=== PATIENT | male | born 1995 | race Caucasian/White ===

== ENCOUNTER 2024-11-22 12:16 | Outpatient (REF) | payer OTHER, SELFPAY ==
--- OUTSIDE RECORDS SUMMARY | 2023-11-03 07:00 | XMS_ITS ---
Author Organization Alistair Taylor III, MD Address [address] [place] [address] Care Team Providers Care Evaporator Helper Name Role Phone Alistair Taylor Primary Care Provider Allergies Allergen (clinical drug ingredient) Drug/Non Drug [...] Date Provider Diagnosis Alistair Taylor III, MD [address] [place] [address] [address] [place] [address] 11/03/2023 Alistair Taylor Obesity (BMI 30-39.9) E66.9 [...] Year, Reason: A nnual Exam Provider Name:Alistair Taylor, 11/06/2025 11:00:00 AM, [address] [place] [address] [address], [place], [address], Progress Notes * Bryon HUNTERDOB:1995 (28 yo M)Acc No.[id number]:11/03/2023 Progress Notes Patient: Bryon Milner Provider: Gurwinder Taylor MD :1995 A ge:28 Y S ex:Male Date:11/03/2023 Address: [address], [address] Subjective: * Chief Complaints: * A nnual [...] N egative H sivakumar was born in [facility]. He came to this country at the age of 3 and his [place] since. He is working for the [employer] in [place]. He has no toxic exposures. He works [...] 0 11/03/2023 Generated for Aisha melissa/Hermilo/Shreyassmitting on: 0 11/22/2024 01:10 PM EDT History and Physical Notes * HPI (History [...] Have you been exposed to the virus withi n the last 10 days?: No Have [...]
--- OUTSIDE RECORDS SUMMARY | 2024-11-04 07:00 | XMS_ITS ---
Author Organization Alistair Taylor III, MD Address [address] [place] [address] Care Team Providers Care Exhibitor Sales Name Role Phone Alistair Taylor Primary Care [...] M edicine Referred Provider [facility], of [facility], [facility] Referred Provider Specialty Otolaryngolo gy General Notes Shanique Jain [facility] 11/10 09:48:17 AM >form/ref/progress note faxed to ENT of [facility], Shanique Jain [facility] 11/17/2024 03:29:45 PM >called ENT made patient appt with Dr Jose Luis Funez 100 [facility] [address] [place] [address] info called and mailed to patient Referral [...] Problem Status W/U Status Risk Notes Problem [id number] Deviated nasal septum (J34.2) Active confirmed He [...] Date Provider Diagnosis Alistair Taylor III, MD [address] [place] [address] [place] [address] 11/04/2024 Alistair Taylor Obesity (BMI 30-39.9) E66.9 [...] septum evaluate and treatment excessive snoring, of [facility], [facility] Next Appt Details Follow Up: after testing, Re ason: ov review labs/sleep study Provider Name:Alistair Coxne, 11/06/2025 11:00:00 AM, [address] [place] [address] , [address], [address], Progress Notes * Ian HUNTERitzelDOB:1995 (29 yo M)Acc No.[id number]:11/04/2024 Progress Notes Patient: Bryon FERRELL Provider: Gurwinder Taylor MD :1995 A ge:29 Y S ex:Male Date:11/04/2024 Address: [address], [address] Subjective: * Chief Complaints: * A nnual [...] days P oor appetite or overeating S everal F eeling bad about yourself or that [...] N egative H sivakumar was born in [place], [facility]. He came to this country at the age of 3 and his [place] since. He is working for the [employer] in [place]. He has no toxic exposures. He works [...] maging: Sleep Study - Diagnostic Referral To:of [facility] Otol[facility] Reason:deviated septum evaluate and treatment excessive snoring 3. O thers Start Albuterol Sulfate HFA Aerosol Solution, 108 (90 Base) MCG/ACT, 1 puff as needed, Inhalation, every 6 hrs, 30 days, 1 Inhaler, Refills 11. ? Referral To:of [facility] Otol[facility] Reason:deviated septum evaluate and treatment [...] MD Date: 0 11/04/2024 Generated for Aisha melissa/Faxing/eTransmitting on: 0 11/22/2024 01:09 PM EDT History and Physical Notes * [...] Not es 11/04/2024 Alistair Taylor Sur[facility], of [facility], [facility] deviated septum evaluate and treatment excessive snoring
--- OUTSIDE RECORDS SUMMARY | 2024-11-08 10:33 | XMS_ITS ---
Author Organization Alistair Taylor III, MD Address [address] [place] [address] [place] [address] Care Team Providers Care Engineer Design And Construction Name Role Phone Alistair Taylor Primary Care Provider [phone] REASON FOR VISIT new order for Home sleep study Social History Sex Assigned At : Social History Observation Description Sex Assigned At Male Encounters Encounter Location Date Provider Diagnosis Alistair Taylor III, MD [address] [place] [address] [place] [address] 11/08/2024 Alistair Taylor Obesity (BMI 30-39.9 ) [...] Baseline 11/08/2024 Next Appt Details Provider Name:Alistair Taylor, 11/06/2025 11:00:00 AM, [address] [place] [address] [place], [address], Progress Notes * Bryon HUNTERDOB:1995 (29 yo M)Acc No.[id number]:11/08/2024 Patient: Susy Bryon HODGES :1995 A ge:29 Y S ex:Male Address: [address], [address], [place], [address] Subjective: * Chief Complaints: * n ew [...] * Date: Generated for Aisha melissa/Hermilo/Cory on: 0 11/22/2024 01:10 PM EDT
[2024-11-22 12:45] LABS: MANUAL DIFF FLAG NO
--- OUTSIDE RECORDS SUMMARY | 2024-11-22 13:10 | XMS_ITS | Encounter Summary ---
Author Organization [facility] Address [address] [place] [address] Phone Care Team Providers Care Milk Vendor Name Role Phone Sudhakar Agosto MD Primary Care Provider Unavailabl e Encounter Details Date Type Department Care Team (Late st Contact Info) Description 10/02/2014 Documentation [facility] Family Medicine [address] [place] [address] Family Medicine, Physician [address] [place], [place] [address] Social History Tobacco Use Types Packs/Day Years Used Date Smoking Tobacco: Never Comments:Never smoker Sex and Gender Information Value Date Recorded Sex Assigned at Not on file Legal Sex Male 4:55 PM EDT Gender Identity Not on file Sexual Orientation Not on file documented as of this encounter Plan of Treatment Not on file documented as of this encounter Visit Diagnoses Not on filedocumented in this encounter Care Teams Milk Vendor Relationship Specialty Start Date End Date Sudhakar Agosto MD PCP - General 11/07/16 documented as of this encounter
--- OUTSIDE RECORDS SUMMARY | 2024-11-22 13:10 | XMS_ITS | Encounter Summary ---
Author Organization [facility] Address [address] [place] [address] Phone Care Team Providers Care Wool Sacker Name Role Phone Sudhakar Agosto MD Primary Care Provider Unavailabl e Encounter Details Date Type Department Care Team (Late st Contact Info) Description 06/02/2014 Documentation [facility] Family Medicine [address] [place] [address] Family Medicine, Physician [address] [place], [place] [address] Social History Tobacco Use Types Packs/Day Years [...] on filedocumented in this encounter Care Teams Wool Sacker Relationship Specialty Start Date End Date Sudhakar Agosto MD PCP - General 11/07/16 documented as of this encounter
--- OUTSIDE RECORDS SUMMARY | 2024-11-22 13:10 | XMS_ITS ---
Author Name [facility] Organization Unknown Care Team Organization Name Specialty Phone Email Start Date End Da te [facility] Em Carty [facility] 08/04/20222023 [facility] Sameer Aguayo DO Primary Care 06/04/202210/28 [facility] NULL Primary Care 02/04/2022 11/16/2023
--- OUTSIDE RECORDS SUMMARY | 2024-11-22 13:10 | XMS_ITS | Clinical Summary ---
Author Organization [facility] Address [address] [id number] Care Team Providers Care Outreach Analyst Name Role Phone Unavailable Primary Care Provider Unavailabl e Allergies No known active allergies Medications No known medications Social History Tobacco Use Types Packs/Day Years Used Date Smoking Tobacco: Never Assessed Sex and Gender Information Value Date Recorded Sex Assigned at Male 02/16/2021 10:38 AM EST Gender Identity Not on file Sexual Orientation Not on file Job Start Date Occupation Industry Not on file Not on file Not on file Last Filed Vital Signs Vital Sign Reading Time Taken Comments Blood Pressure 118/78 02/26/2021 8:57 AM EST Pulse - - Temperature - - Respiratory Rate - - Oxygen Saturation - - Inhaled Oxygen Concentration - - Weight 100 kg (220 lb 7.4 oz) 02/26/2021 8:57 AM EST Height 177.8 cm (5' 10 ) 02/26/2021 8:57 AM EST Body Mass Index 31.63 02/26/2021 8:57 AM EST Plan of Treatment Health Maintenance Due Date Last Done Comments Hepatitis B Vaccines (1 of 3 - 3-dose series) 1996 Hepatitis C Screening 1996 COVID-19 Vaccine (#1) 04/18/1997 Depression Screening 2008 Preventative Health Evaluation 2014 DTap / Tdap / Td (1 - Tdap) 10/17/2015 Influenza Vaccine (#1) 2024 Pneumococcal Vaccine Aged Out No long er eligible based on patient's age to complete this topic RSV Ped < 20 months Aged Out No longe r eligible based on patient's age to complete this topic
--- OUTSIDE RECORDS SUMMARY | 2024-11-22 13:10 | XMS_ITS | Clinical Summary ---
Author Organization [facility] Address [address] [place] [address] Phone Care Team Providers Care Shipping Order Clerk Name Role Phone Sudhakar Agosto MD Primary Care Provider Unavailabl e Immunizations Immunization Administration Dates Next Due DTaP 5 12/03/2001, 2,01/15/2001,09/25 H1N1 02/20/2009 HPV Vaccine 9 Valent 08/23/2015 HPV, Quadrivalent 09/05/2014,05/11/2014 Hep A, ped/adol 10/20/2008,08/19/2006 Hep B, ped/adol 04/28/2001,11/13/2000,09/25/2000 Hib (PRP-T) 06/08/2001 IPV 12/03/2001, 2,01/15/2001,09/25 Influenza Split 12/18/2011,12/12/2010 Influenza, injectable, quadrivalent 05/11/2014 Influenza, injectable, quadr ivalent, preservative free 04/28/2013 Influenza, injectable, trivalent 03/28/2009 MMR 06/08/2001,09/25/2000 Meningococcal Conj (Menactra) MCV4P 09/05/2014,0 10/20/2008 Tdap 10/20/2008 Varicella 10/20/2008,06/08/2001 Family History Relation Name Status Comments Father Alive Father: Alive a nd well Mother Alive Mother: Alive a nd well Other No family histo ry of Sudden , , Family history of Autism, No family history of Stroke, No family history of Heart disease, , Family history of Elevated cholesterol, Family history of Deafness Sister Alive Sister: Alive a nd well Social History Tobacco Use Types Packs/Day Years Used Date Smoking Tobacco: Never Comments:Never smoker Sex and Gender Information Value Date Recorded Sex Assigned at Not on file Legal Sex Male 4:55 PM EDT Gender Identity Not on file Sexual Orientation Not on file Last Filed Vital Signs Vital Sign Reading Time Taken Comments Blood Pressure 116/78 08/23/2015 12:00 AM EDT Pulse 72 08/23/2015 12:00 AM EDT Temperature 36.1 C (96.9 F) 12/23/2012 12:00 AM EDT Respiratory Rate - - Oxygen Saturation - - Inhaled Oxygen Concentration - - Weight 87.4 kg (192 lb 9.6 oz) 08/23/2015 12:00 AM EDT Height 175.3 cm (5' 9 ) 08/23/2015 12:00 AM EDT Body Mass Index 28.44 08/23/2015 12:00 AM EDT Plan of Treatment Health Maintenance Due Date Last Done Comments DTaP,Tdap,and Td Vaccines (6 - Td or Tdap) 10/20/2018 10/20/2008, 12/03/2001, 04/28/2001, Additional history exists COVID-19 Vaccine ( season) 2023 Influenza Vaccines (#1) 2024 05/11/19 15, 04/28/2013, 12/18/2011, Additional history exists Hepatitis B Vaccines Completed 04/28/2001, 11/13/2000, 09/25/2000 HIB Vaccines Completed 06/08/2001 MMR Vaccines Completed 06/08/2001, 09/25/2000 IPV Vaccines Completed 12/03/2001, 04/01, 01/15/2001, Additional history exists Hepatitis A Vaccines Completed 10/20/2008, 08/20/19 07 Varicella Vaccines Completed 10/20/2008, 06/08/2001 Meningococcal Vaccine Completed 09/05/2014, 009 HPV Vaccines Completed 08/23/2015, 0611/2014, 05/11/2014 Men B Vaccine Aged Out No longer elig ible based on patient's age to complete this topic Pneumococcal Vaccine Aged Out No long er eligible based on patient's age to complete this topic Care Teams Shipping Order Clerk Relationship Specialty Start Date End Date Sudhakar Agosto MD PCP - General 11/07/16
--- OUTSIDE RECORDS SUMMARY | 2024-11-22 13:10 | XMS_ITS | Encounter Summary ---
Author Organization [facility] Address [address] [place] [address] Phone Care Team Providers Care Setup Operator Name Role Phone Sudhakar Agosto MD Primary Care Provider Unavailabl e Encounter Details Date Type Department Care Team (Late st Contact Info) Description 11/13/2016 Conversion Encounter [facility] - [address] [address] Social History Tobacco Use Types Packs/Day Years [...] on filedocumented in this encounter Care Teams Setup Operator Relationship Specialty Start Date End Date Sudhakar Agosto MD PCP - General 11/07/16 documented as of this encounter
--- OUTSIDE RECORDS SUMMARY | 2024-11-22 13:10 | XMS_ITS | Patient Health Record ---
Author Organization Alistair Taylor III, MD Address [address] [place] [address] Care Team Providers Care Route Deliverer Name Role Phone Alistair Taylor Primary Care [...] M edicine Referred Provider [facility], of [facility], [facility] Referred Provider Specialty Otolaryngolo gy General Notes Shanique Jain [facility] 11/10 09:48:17 AM >form/ref/progress note faxed to [facility], Shanique Jain [facility] 11/17/2024 03:29:45 PM >called ENT made patient appt with Dr Jose Luis Funez 100 [facility] [address] [place] [address] info called and mailed to patient Referral Priority Routine Referral Appointment Date 01/31/2025 Medications Medication SIG (Take, Route, Frequency, Duration) Notes Start Date End Date Status Albuterol Sulfate HFA 108 (90 Base) MCG/ACT 1 puff as needed Inhalation every 6 hrs for 30 days 11/04/2024 Active Immunizations Vaccine Route Administration Date Status Comme nts COVID PFIZER Unknown 05/17/2020 Administered Menactra (MCV4) Unknown 09/05/2014 Administered COVID PFIZER Unknown 06/06/2020 Administered Social History Tobacco Use: Social History Observation [...] Problem Status W/U Status Risk Notes Problem 771114770 Deviated nasal septum (J34.2) Active confirmed He will have a consultation with ENT after the sleep study. Problem 152409328 Obesity (BMI 30-39.9) (E66.9) Active confirmed His body mass index is 37. We had a long discussion about health consequences of obesity. We discussed diet and nutrition. We made a plan to lose weight at a rate of 1 poundd per week. He was referred to a dietitian for a low cholesterol weight reduction diet. Problem 32451660 Fasciitis (M72.9) Active confirmed This has resolved and is no longer present. Problem 715191944 Right anterior knee pain (M25.561) Active confirmed He has occasional pain in his knee which has improved substantially from his prior visit. I recommended he rest when it begins to hurt and not overuse the joint. Problem 317429141009 Excessive daytime sleepiness (G47.19) Active confirmed Vital Signs Heart Rate 69 /min 11/04/2024 Temperature 98.1 degrees Fahrenheit 11/04/2024 Blood pressure diastolic 96 mm Hg 11/04/2024 Height 67 in 11/04/2024 Blood pressure systolic 133 mm Hg 11/04/2024 Weight 246 lbs 11/04/2024 BMI 38.52 kg/m2 11/04/2024 Encounters Encounter Location Date Provider Diagnosis Alistair Taylor III, MD [address] [place] [address] [address] [id number] 11/04/2024 Alistair Coxne Obesity (BMI 30-39.9 ) E66.9 ; Loud snoring R06.83 ; Right anterior knee pain M25.561 and Deviated nasal septum J34.2 Alistair Taylor III, MD [address] [place] [address] [address] [address] 11/08/2024 Alistair Tayolr Obesity (BMI 30-39.9 ) E66.9 ; Excessive [...] referred for a sleep study sleep apnea. 11/08/2024 Obesity (BMI 30-39.9) (ICD-10 - E66.9) 11/04/2024 Right anterior knee pain (ICD-10 - M25.561) He has occasional pain in his knee which has improved substantially from his prior visit. I recommended he rest when it begins to hurt and not overuse the joint. 11/08/2024 Excessive daytime sleepiness (ICD-10 - G47.19) 11/04/2024 Deviated nasal septum (ICD-10 - J34.2) He will have a consultation with ENT after the sleep study. 11/08/2024 Loud snoring (ICD-10 - R06.83) Plan Of Treatment Pending Test Test Name Order Date PROFILE, FASTING (COMPREHENSIVE METABOLI C) 11/04/2024 PROFILE, FASTING (COMPREHENSIVE METABOLI C) 05/10/2019 PROFILE, FASTING (COMPREHENSIVE METABOLI C) 11/03/2023 PROFILE, FASTING (COMPREHENSIVE METABOLI C) 10/28/2022 LIPID PANEL 10/28/2022 LIPID PANEL 05/10/2019 CBC w DIFF 11/04/2024 CBC w DIFF 10/28/2022 CBC w DIFF 05/10/2019 Sleep Study - Baseline 11/08/2024 Sleep Study - Diagnostic 11/04/2024 CBC WITH AUTO DIFF 11/03/2023 Lipid Panel 11/04/2024 Lipid Panel 11/03/2023 Testosterone, Total 11/04/2024 Next Appt Details Provider Name:Alistair Taylor, 11/06/2025 11:00:00 AM, [address] [place] [address] DR, [facility] [address], [place], [address], Insurance Providers Payer Name Payer Address Payer Phone Subscriber Number Group Number Insured Name Patient Relationship to Insured Coverage Start Date Coverage End Date BAUDILIO COREAS [id number] [place] [id number] Bryon Hunter Self - patient is the insured Medical (General) History Medical History History ICD Code Overweight E66.3 Surgical History Surgery Date(Month/Year) Lasik bilateral 2022 dental extractions age 17
--- OUTSIDE RECORDS SUMMARY | 2024-11-22 13:10 | XMS_ITS | Clinical Summary ---
Author Organization [facility] Address [address] [place] [address] Care Team Providers Care Auto Headlight Mechanic Name Role Phone Unavailable Primary Care Provider Unavailabl e Social History Tobacco Use Types Packs/Day Years Used Date Smoking Tobacco: Never Assessed Sex and Gender Information Value Date Recorded Sex Assigned at Not on file Legal Sex Male 6:19 AM EST Gender Identity Not on file Sexual Orientation Not on file Plan of Treatment Health Maintenance Due Date Last Done Comments DTaP,Tdap,and Td Vaccines (1 - Tdap) 10/17/2015 Hepatitis B Vaccines (1 of 3 - 19+ 3-dose series) 10/17/2015 COVID-19 Vaccine ( - 2023-2 5 season) 2023 Depression Screening 03/30/2024 Influenza Vaccine (#1) 2024 HIB Vaccines Aged Out No longer eligi ble based on patient's age to complete this topic HPV Vaccines Aged Out No longer eligi ble based on patient's age to complete this topic Hepatitis A Vaccines Aged Out No long er eligible based on patient's age to complete this topic IPV Vaccines Aged Out No longer eligi ble based on patient's age to complete this topic MMR Vaccines Aged Out No longer eligi ble based on patient's age to complete this topic Meningococcal ACWY Vaccine Aged Out N o longer eligible based on patient's age to complete this topic Meningococcal B Vaccine Aged Out No l onger eligible based on patient's age to complete this topic Pneumococcal Vaccine: Pediat rics (0 to 5 Years) and At-Risk Patients (6 to 49 Years) Aged Out No longer eligible b ased on patient's age to complete this topic RSV Immunization Patients Un libra 20 months Aged Out No longer eligible b ased on patient's age to complete this topic Varicella Vaccines Aged Out No longer eligible based on patient's age to complete this topic
--- OUTSIDE RECORDS SUMMARY | 2024-11-22 13:10 | XMS_ITS | Encounter Summary ---
Author Organization [facility] Address [address] [place] [address] Phone Care Team Providers Care Brake Operator Heavy Duty Name Role Phone Sudhakar Agosto MD Primary Care Provider Unavailabl e Encounter Details Date Type Department Care Team (Late st Contact Info) Description 11/21/[address] [facility] [place] Family Medicine [address] [place] [address] Family Medicine, Physician [address] [place], [place] [address] Social History Tobacco Use Types Packs/Day Years [...] on filedocumented in this encounter Care Teams Brake Operator Heavy Duty Relationship Specialty Start Date End Date Sudhakar Agosto MD PCP - General 11/07/16 documented as of this encounter
--- OUTSIDE RECORDS SUMMARY | 2024-11-22 13:10 | XMS_ITS | Encounter Summary ---
Author Organization [facility] Address [address] [place] [address] Phone Care Team Providers Care Social Service Liaison Name Role Phone Sudhakar Agosto MD Primary Care Provider Unavailabl e Encounter Details Date Type Department Care Team (Late st Contact Info) Description 12/29/2011 Documentation [facility] [place] Family Medicine [address] [place] [address] Family Medicine, Physician [address], [place] [address] Social History Tobacco Use Types Packs/Day Years [...] on filedocumented in this encounter Care Teams Social Service Liaison Relationship Specialty Start Date End Date Sudhakar Agosto MD PCP - General 11/07/16 documented as of this encounter
[2024-11-22 14:31] LABS: Hematocrit 47.5 % (42.0-52.0); Hemoglobin 15.7 g/dl (14.0-18.0); Imm Gran Abs Auto 0.02 X10*3/uL (0.00-0.03); Imm Gran Pct Auto 0.2 % (0.0-0.4); Lymphocytes Absolute Auto 2.0 X10*3/uL (1.2-4.9); Mean Corpuscular HGB Conc 33.1 g/dl (31.0-36.0); Mean Corpuscular Hemoglobin 28.5 pg (27.0-33.0); Mean Corpuscular Volume 86.4 fL (80.0-98.0); NRBC Abs Auto 0.000 X10*3/uL (0.0-0.012); NRBC Pct Auto 0.0 /100WBC (0.0-0.2); Platelet Count 289 X10*3/uL (160-400); Red Blood Count 5.50 X10*6/uL (4.60-5.80); White Blood Count 8.1 X10*3/uL (4.8-10.8)
[2024-11-22 15:05] LABS: Alanine Aminotransferase 52 U/L (0-40); Albumin Level 4.8 g/dL (3.5-5.0); Alkaline Phosphatase 54 U/L (39-117); Anion Gap 14 (12-20); Aspartate Amino Transferase 30 U/L (5-37); Blood Urea Nitrogen 13 mg/dL (9-16); Calcium 9.5 mg/dL (8.4-10.2); Carbon Dioxide 25 mmol/L (22-29); Chloride 105 mmol/L (96-108); Cholesterol 183 mg/dL (<200); Estimated Glomerular Filt Rate > 60; HDL Cholesterol 45 mg/dL (>40); Potassium 4.1 mmol/L (3.3-5.1); Sodium 140 mmol/L (135-145); Total Protein 7.9 g/dL (6.5-8.0); Triglycerides 102 mg/dL (<150)
== END 2024-11-22 12:17 | disposition home or self-care (01) ==
LOC: HO.LAB 12:16
PROVIDERS: PCP Internal Medicine Medical Oncology; Visit Provider Internal Medicine Medical Oncology
DX: G47.19 Other hypersomnia (principal); E66.9 Obesity, unspecified; R06.83 Snoring
CPT/HCPCS: 36415; 80053; 80061; 84403; 85025

== ENCOUNTER → 2025-02-07 07:51 | Outpatient (REF) | payer OTHER, SELFPAY ==
--- OUTSIDE RECORDS SUMMARY | 2023-11-03 06:00 | XMS_ITS ---
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 Alistair Taylor III Primary Care Provider [phone] Allergies Allergen (clinical drug ingredient) Drug/Non Drug Allergy documented on EMR Reaction Allergy Type Onset Date Status Fruits (uncoded) Unknown Allergy Act nader Results Component Value Reference Range Notes URINE DIP STICK Reviewed date:11/03/2023 01:47:12 PM Interpretation: Performing Lab: Notes/Report: SG 1.025 1.005 - 1.025 pH 15 5.0 - 9.0 GILDARDO Negative Negative - NIT Negative Negative - PRO 15 Negative - Trace GLU Negative Negative - KET Negative Negative - UBG 0.2 0.1 - 1.8 GENESIS Negative 0.2 - 1.3 BLD Negative Negative - REASON FOR VISIT annual exam Social History Tobacco Use: Social History Observation Description Date Details (start date - stop date) Never Smoker NA - NA Sex Assigned At : Social History Observation Description Sex Assigned At Male Tobacco Use/Smoking Question Answer Notes Patient is a nonsmoker Additional Findings: Tobacco Non-User Aggressive non-smoker Alcohol Screen Question Answer Notes Did you have a drink contain ing alcohol in the past year? Yes How often did you have a dri nk containing alcohol in the past year? 2 to 4 times a month (2 points) How many drinks did you have on a typical day when you were drinking in the past year? 1 or 2 drinks (0 point) How often did you have 6 or more drinks on one occasion in the past year? Never (0 point) Points 2 Interpretation Negative Vital Signs Temperature 97.5 degrees Fahrenheit 11/03/19 24 Blood pressure systolic 130 mm Hg 11/03/19 24 Blood pressure diastolic 78 mm Hg 024 Heart Rate 61 /min 11/03/2023 Height 67 in 11/03/2023 Weight 248 lbs 11/03/2023 BMI 38.84 kg/m2 11/03/2023 Encounters Encounter Location Date Provider Diagnosis Alistair Taylor III, MD [address] [place] [address] [address] [place] [address] 11/03/2023 Alistair Taylor Obesity (BMI 30-39.9) E66.9 and Right anterior knee pain M25.561 Assessments Encounter Date Diagnosis (ICD Code) Assessment Notes Treatment Notes Treatment Clinical Notes 11/03/2023 Obesity (BMI 30-39.9) (ICD-10 - E66.9) Much of his weight is muscle as he has well-developed musculature. He'll continue to try and lose excess adipose tissue. A followup was arranged. 11/03/2023 Right anterior knee pain (ICD-10 - M25.561) He has occasional pain in his knee which has improved substantially from his prior visit. I recommended he rest when it begins to hurt and not overuse the joint. Plan Of Treatment Pending Test Test Name Order Date PROFILE, FASTING (COMPREHENSIVE METABOLI C) 11/03/2023 CBC WITH AUTO DIFF 11/03/2023 Lipid Panel 11/03/2023 Next Appt Details Follow Up: 1 Year, Reason: A nnual Exam Provider Name:Alistair Taylor , 11/06/2025 11:00:00 AM, [address] [place] [address] [address], [place], [address], Progress Notes * Bryon HUNTERDOB:1995 (28 yo M)Acc No.[id number]:11/03/2023 Progress Notes Patient: Bryon Milner Provider: Gurwinder Taylor MD :1995 A ge:28 Y S ex:Male Date:11/03/2023 Address: [address], [address] Subjective: * Chief Complaints: * A nnual exam * HPI: D epression Screening: He returns to the office at the age of 28 for his annual physical examination. He is feeling healthy and well and has no new complaints.The right knee pain has improved substantially. He is exercising regularly. He has been trying to lose weight. PHQ-9 L ittle interest or pleasure in doing things?Not at all F eeling down, depressed, or hopeless N ot at all T rouble falling or staying asleep, or sleeping too much N ot at all F eeling tired or having little energy N ot at all P oor appetite or overeating N ot at all F eeling bad about yourself or that you are a failure, or have let yourself or your family down N ot at all T rouble concentrating on things, such as reading the newspaper or watching television N ot at all M oving or speaking so slowly that other people could have noticed; or the opposite, being so fidgety or restless that you have been moving around a lot more than usual N ot at all T houghts that you would be better off or of hurting yourself in some way N ot at all T otal Score 0 C OVID-19 Screening: lasik 01/19 good result, strep selma urg care, 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 Questions H ave you experienced fever, chills, cough, sore throat, shortness of breath, difficulty breathing, muscle aches, loss of taste or smell? N o H ave you been exposed to the virus within the last 10 days? N o H ave you travelled internationally in the last 10 days? N o H ave you been exposed to COVID-19 in the past? Y es S PITA Questions: SDOH Questions I n the past year have you been worried about losing your housing? N o I n the past year have you or any family members you live with been unable to get any of the following when it was really needed? Check all that apply: N one * ROS: G eneral/Constitutional: pain o nly normal aches and pains. C hills d enies.?Fatigue a dmits. F ever d enies. E NT: Decreased hearing d enies. R espiratory: Cough d enies. C ardiovascular: Chest pain with exertion d enies. D yspnea on exertion?denies. S hortness of breath d enies. G astrointestinal: Constipation o ccasional. D ecreased appetite d enies. D iarrhea d enies. H eartburn d enies. N ausea d enies. R ectal bleeding d enies. V omiting d enies. H ematology: bruising d enies. p etechiae d enies. S wollen glands n one have been noted. G enitourinary: Frequent urination d enies. M usculoskeletal: Muscle aches d enies. P ainful joints d enies. S ciatica d enies. W eakness d enies. S kin: Itching d enies. R silvino d enies. S kin lesion(s)?denies. N eurologic: Difficulty speaking d enies. D izziness d enies.?Headache d enies. L ow back pain d enies. P sychiatric: Depressed mood d enies. * Medical History: * Surgical History: d ental extractions age 17 Lasik bilateral 2022 * Hospitalization/Major Diagno stic Procedure: D enies Past Hospitalization * Family History: F ather: alive 45 yrs, Depression. M other: alive 35 yrs, Chronic pain. S iblings: 1 sister. M aternal Grand Father: alive, diagnosed with Cancer. 1 sister(s) - healthy. . His parents are alive and well. His father suffers from depression. He has a sister, Germaine, who is healthy. A grandmother had a history of breast cancer at an unknown age and is still living. There is no family history of ovarian cancer pancreatic cancer colon cancer or prostate cancer. * Social History: T obacco Use: T obacco Use/Smoking P atient is a n onsmoker A dditional Findings: Tobacco Non-User A ggressive non-smoker D rugs/Alcohol: D rugs H ave you used drugs other than those for medical reasons in the past 12 months? N o Alcohol Screen D id you have a drink containing alcohol in the past year? Y es H ow often did you have a drink containing alcohol in the past year? 2 to 4 times a month (2 points) H ow many drinks did you have on a typical day when you were drinking in the past year? 1 or 2 drinks (0 point) H ow often did you have 6 or more drinks on one occasion in the past year? N ever (0 point) P oints 2 I nterpretation N egative H sivakumar was born in [facility]. He came to this country at the age of 3 and his [place] since. He is working for the [employer] in [place]. He has no toxic exposures. He works out at a gym regularly and lifts weights. He is single with no children. * Medications: N one * Allergies: F prem[Allergies Verified] Objective: * Vitals: H t: 67, Wt: 248, BMI:38.84, BP: 130/78, HR: 61, Temp: 97.5, Wt-k.49. * Examination: G eneral Examination: GENERAL APPEARANCE: p leasant, well nourished, well developed, in no acute distress, calm and relaxed , obese , man. HEAD: a traumatic, normocephalic. EYES: e angela, perrla, anicteric, conjugate. EARS: n ormal. NOSE: s eptum intact. ORAL CAVITY: n ormal, unremarkable. NECK/THYROID: n o jugular venous distention, no carotid bruit, thyroid normal. LYMPH NODES: n o enlarged lymph nodes,spleen normal. SKIN: n o suspicious lesions, anicteric. HEART: n o clicks, gallops, murmurs, or rubs, regular rhythm, S1, S2 normal, no s3, or vascular bruits. LUNGS: c lear to auscultation . BREASTS: no masses palpable bilaterally. ABDOMEN: b owel sounds normal, no ascites, no organomegaly, no mass. RECTAL EXAM: n ot examined. MUSCULOSKELETAL: e xtremities unremarkable, no clubbing, cyanosis or edema. PERIPHERAL PULSES: n ormal. NEUROLOGIC: a lert and oriented, cranial nerves 2-12 grossly intact, deep tendon reflexes 2+ symmetrical, motor strength normal upper and lower extremities, sensory exam intact. PSYCH: a lert, oriented , thought process logical, goal directed , speech clear , mood/affect full range , judgement and insight good , good eye contact. ? Assessment: * Assessment: 1. O besity (BMI 30-39.9) - E66.9 (Primary), Much of his weight is muscle as he has well-developed musculature. He'll continue to try and lose excess adipose tissue. A followup was arranged. 2 . R ight anterior knee pain - M25.561, He has occasional pain in his knee which has improved substantially from his prior visit. I recommended he rest when it begins to hurt and not overuse the joint. Plan: * Treatment: * Labs: * L ab: URINE DIP STICK Value Reference Range S G 1.025 1.005 - 1.025 * p H 15 5.0 - 9.0 * L EU Negative Negative - * N IT Negative Negative - * P RO 15 Negative - Trace * G SANTA Negative Negative - * K ET Negative Negative - * U BG 0.2 0.1 - 1.8 * B IL Negative 0.2 - 1.3 * B LD Negative Negative - * Procedure Codes: 8 1002 URINE-NO MICRO * Preventive Medicine: Counseling: C are goal follow-up plan: Counseling for abnormal BMI given Y es Above Normal BMI Follow-up D ietary management education, guidance, and counseling, Dietary needs education, Exercise promotion: strength training, Exercise promotion: stretching, Feeding regime, Giving encouragement to exercise, Lifestyle education regarding diet, Nutrition / feeding management, Nutrition therapy, Prescribed activity/exercise education, Prescribed diet education, Prescribed dietary intake, Special diet education, Weight monitoring , Intervention, Order not done: Medical or Other reason not done * Follow Up: 1 Year (Reason: Annual Exam) * Images: * Sign off status: Completed true * Provider: Gurwinder Taylor MD Date: 0 11/03/2023 Generated for Aisha melissa/Hermilo/Shreyassmitting on: 1 04/09/2024 07:54 AM EST History and Physical Notes * HPI (History of Present Illness) Category Sub-Category Detail Notes Depression Screening PHQ-9 Little inte rest or pleasure in doing things: Not at all Feeling down, depressed, or hopeless: No t at all Trouble falling or staying asleep, or sl eeping too much: Not at all Feeling tired or having little energy: N ot at all Poor appetite or overeating: Not at all Feeling bad about yourself o r that you are a failure, or have let yourself or your family down: Not at all Trouble concentrating on thi ngs, such as reading the newspaper or watching television: Not at all Moving or speaking so slowly that other people could have noticed; or the opposite, being so fidgety or restless that you have been moving around a lot more than usual: Not at all Thoughts that you would be b elin off or of hurting yourself in some way: Not at all Total Score: 0 COVID-19 Screening Questions Have you had any new onset fever, chills, cough, congestion, sore throat, shortness of breath, muscle aches?: No Have you been exposed to the virus with n the last 10 days?: No Have you travelled internationally in e last 10 days?: No Have you been exposed to COVID-19 in the past?: Yes SDOH Questions SDOH Questions In the past year have you been worried about losing your housing?: No In the past year have you or any family members you live with been unable to get any of the following when it was really needed? Check all that apply:: None Examination Category Sub-Category Detail Notes General Examination GENERAL APPEARANCE: pleasant , well nourished, well developed, in no acute distress, calm and relaxed , obese , man HEAD: atraumatic, normocep halic EYES: eomi, perrla, anicte jacob, conjugate EARS: normal NOSE: septum intact NECK/THYROID: no jugular venous di stention, no carotid bruit, thyroid normal HEART: no clicks, gallops, murmurs, or rubs, regular rhythm, S1, S2 normal, no s3, or vascular bruits LUNGS: clear to auscultatio n ABDOMEN: bowel sounds normal, no ascites, no organomegaly, no mass NEUROLOGIC: alert and oriented, cranial nerves 2-12 grossly intact, deep tendon reflexes 2+ symmetrical, motor strength normal upper and lower extremities, sensory exam intact SKIN: no suspicious lesion s, anicteric PERIPHERAL PULSES: normal BREASTS: no masses palpable b ilaterally MUSCULOSKELETAL: extremities unremark able, no clubbing, cyanosis or edema LYMPH NODES: no enlarged lymph no jyoti,spleen normal RECTAL EXAM: not examined PSYCH: alert, oriented , th ought process logical, goal directed , speech clear , mood/affect full range , judgement and insight good , good eye contact ORAL CAVITY: normal, unremarkable
--- OUTSIDE RECORDS SUMMARY | 2024-11-04 06:00 | XMS_ITS ---
Author Organization Alistair Taylor III, MD Address [address] [place] [address] Care Team Providers Care Channel Rebuilder Name Role Phone Dr. Alistair Talyor III Primary Care Provider Allergies Allergen (clinical drug ingredient) Drug/Non Drug Allergy documented on EMR Reaction Allergy Type Onset Date Status No Known Drug Allergy Unknown Drug Allergy Active Fruits (uncoded) Unknown Allergy Act nader Reason For Referral Reason deviated septum ev aluate and treatment excessive snoring Diagnosis 1 Obesity (BMI 30-39.9 ) (E66.9) Diagnosis 2 Loud snoring (R06.83 ) Diagnosis 3 Excessive daytime sl eepiness (G47.19) Referral Organization Alistair Taylor III, MD Referring Provider First Name Alistair Referring Provider Last Name Claudia Referring Provider Speciality Internal M edicine Referred Provider [facility], of [facility], [facility] Referred Provider Specialty Otolaryngolo gy General Notes Shanique Jain [facility] 11/10 09:48:17 AM >form/ref/progress note faxed to [facility] of [facility], Shanique Jain [facility] 11/17/2024 03:29:45 PM >called ENT made patient appt with Dr Jose Luis Funez [address] info called and mailed to patient Referral Priority Routine Referral Appointment Date 01/31/2025 REASON FOR VISIT annual exam Medications Medication SIG (Take, Route, Frequency, Duration) Notes Start Date End Date Status Albuterol Sulfate HFA 108 (90 Base) MCG/ACT 1 puff as needed Inhalation every 6 hrs for 30 days 11/04/2024 Active Social History Tobacco Use: Social History Observation Description Date Details (start date - stop date) Never Smoker NA - NA Sex Assigned At : Social History Observation Description Sex Assigned At Male Tobacco Control (Standard) Question Answer Notes Tobacco use: Nonsmoker Additional Findings: Tobacco non-user Aggressive nonsmoker AUDIT-C (Standard) Question Answer Notes Did you have a drink contain ing alcohol in the past year? Yes How often did you have six o r more drinks on one occasion in the past year? 2 to 4 times a month (2 points) How many drinks did you have on a typical day when you were drinking in the past year? 1 or 2 drinks (0 point) How often did you have a dri nk containing alcohol in the past year? Never (0 point) Points 2 Interpretation Negative Problems Problem Type SNOMED Code ICD Code Onset Dates Problem Status W/U Status Risk Notes Problem [id number] Deviated nasal septum (J34.2) Active confirmed He will have a consultation with ENT after the sleep study. Vital Signs Temperature 98.1 degrees Fahrenheit 11/05/19 25 Blood pressure systolic 133 mm Hg 11/05/19 25 Blood pressure diastolic 96 mm Hg 025 Heart Rate 69 /min 11/04/2024 Height 67 in 11/04/2024 Weight 246 lbs 11/04/2024 BMI 38.52 kg/m2 11/04/2024 Encounters Encounter Location Date Provider Diagnosis Alistair Taylor III, MD [address] [place] [address] [place] [address] 11/04/2024 Alistair Taylor Obesity (BMI 30-39.9) E66.9 ; Loud snoring R06.83 ; Right anterior knee pain M25.561 and Deviated nasal septum J34.2 Assessments Encounter Date Diagnosis (ICD Code) Assessment Notes Treatment Notes Treatment Clinical Notes 11/04/2024 Obesity (BMI 30-39.9) (ICD-10 - E66.9) His body mass index is 37. We had a long discussion about health consequences of obesity. We discussed diet and nutrition. We made a plan to lose weight at a rate of 1 poundd per week. He was referred to a dietitian for a low cholesterol weight reduction diet. 11/04/2024 Loud snoring (ICD-10 - R06.83) He was referred for a sleep study sleep apnea. 11/04/2024 Right anterior knee pain (ICD-10 - M25.561) He has occasional pain in his knee which has improved substantially from his prior visit. I recommended he rest when it begins to hurt and not overuse the joint. 11/04/2024 Deviated nasal septum (ICD-10 - J34.2) He will have a consultation with ENT after the sleep study. Plan Of Treatment Medication Medication Name Sig Start Date Stop Date Notes Albuterol Sulfate HFA 108 (9 0 Base) MCG/ACT 1 puff as needed Inhalation every 6 hrs for 30 days 11/04/2024 Pending Test Test Name Order Date PROFILE, FASTING (COMPREHENSIVE METABOLI C) 11/04/2024 CBC w DIFF 11/04/2024 Sleep Study - Diagnostic 11/04/2024 Lipid Panel 11/04/2024 Testosterone, Total 11/04/2024 Referrals Referral Date Details 11/04/2024 11/04/2024, deviated septum evaluate and treatment excessive snoring, of [facility], [facility] Surgeons Next Appt Details Follow Up: after testing, Re ason: ov review labs/sleep study Provider Name:Alistair Taylor , 11/06/2025 11:00:00 AM, [address] [place] [address] , [address], [address], Progress Notes * Ian HUNTERitzelDOB:1995 (29 yo M)Acc No.[id number]:11/04/2024 Progress Notes Patient: Bryon FERRELL Provider: Gurwinder Taylor MD :1995 A ge:29 Y S ex:Male Date:11/04/2024 Address: [address], [address] Subjective: * Chief Complaints: * A nnual exam * HPI: D epression Screening: . He returns at the age of 29 for his annual physical examination. He went to an urgent care center in the fall of this year and was diagnosed with streptococcal pharyngitis and given an antibiotic. He says he had a hard time during pollen season this year. He has significant difficulty breathing through his nose typically when he runs for exercise. His is that he snores very loudly and continuously at night and sometimes stops breathing. She is concerned about sleep apnea. On physical examination today had a mildly deviated septum to the right with narrowing of the nasal passage. I have ordered a sleep study and an ENT consultation. I have suggested fluticasone propionate nasal spray.A follow-up visit was arranged. PHQ-9 L ittle interest or pleasure in doing things?Not at all F eeling down, depressed, or hopeless N ot at all T rouble falling or staying asleep, or sleeping too much S everal days F eeling tired or having little energy S everal days P oor appetite or overeating S ever F eeling bad about yourself or that you are a failure, or have let yourself or your family down N ot at all T rouble concentrating on things, such as reading the newspaper or watching television M ore than half the days M oving or speaking so slowly that other people could have noticed; or the opposite, being so fidgety or restless that you have been moving around a lot more than usual S ever T houghts that you would be better off or of hurting yourself in some way N ot at all T otal Score 6 I nterpretation M ild Depression C OVID-19 Screening: Questions H ave you had any new onset fever, chills, cough, congestion, sore throat, shortness of breath, muscle aches? N o S PITA Questions: SDOH Questions I n [...] of breath d enies. G astrointestinal: Constipation d enies. D ecreased appetite d enies.?Diarrhea d enies. H eartburn d enies. N ausea d enies. R ectal bleeding?denies. V omiting d enies. H ematology: bruising d enies. p etechiae d enies. S wollen glands n one have been noted. G enitourinary: Frequent urination d enies. M usculoskeletal: Muscle aches d enies. P ainful joints T he right knee pain has become minimal. S ciatica d enies. W eakness d [...] Social History: T obacco Use: T obacco Control (Standard) T obacco use: N onsmoker A dditional Findings: Tobacco non-user A ggressive nonsmoker D rugs/Alcohol: D rugs H ave you used drugs other than those for medical reasons in the past 12 months? N o D rug/Alcohol: A ORIANA-C (Standard) D id you have a drink containing alcohol in the past year? Y es H ow often did you have six or more drinks on one occasion in the past year? 2 to 4 times a month (2 points) H ow many drinks did you have on a typical day when you were drinking in the past year? 1 or 2 drinks (0 point) H ow often did you have a drink containing alcohol in the past year? N ever (0 point) P oints 2 I nterpretation N egative H sivakumar was born in [place], [facility]. He came to this country at the age of 3 and his [place] since. He is working for the [employer] in [place]. He has no toxic exposures. He works out at a gym regularly and lifts weights. He is single with no children. * Medications: N one * Allergies: F ruitsNo Known Drug Allergyno[Allergies Verified] Objective: * Vitals: H t: 67, Wt: 246, BMI:38.52, BP: 133/96, HR: 69, Temp: 98.1, Wt-k.58. * Examination: G eneral Examination: GENERAL APPEARANCE: p leasant, well nourished, well developed, in no acute distress, calm and relaxed: obese: man. HEAD: a traumatic, normocephalic. EYES: e angela, perrla, anicteric, conjugate. EARS: n ormal. NOSE: S eptum deviated to the right with narrowing of the nasal. ORAL CAVITY: n ormal, unremarkable. NECK/THYROID: n [...] sounds normal, no ascites, no organomegaly, no mass: centripital obesity. RECTAL EXAM: n ot examined. MUSCULOSKELETAL: e xtremities unremarkable, no clubbing, cyanosis or edema. PERIPHERAL PULSES: n ormal. NEUROLOGIC: a lert and oriented, cranial nerves 2-12 grossly intact, deep tendon reflexes 2+ symmetrical, motor strength normal upper and lower extremities, sensory exam intact. PSYCH: a lert, oriented. Assessment: * Assessment: 1. O besity (BMI 30-39.9) - E66.9 (Primary) N otes :His body mass index is 37. We had a long discussion about health consequences of obesity.? We discussed diet and nutrition. We made a plan to lose weight at a rate of 1 poundd per week. He was referred to a dietitian for a low cholesterol weight reduction diet. 2 . L oud snoring - R06.83 N otes :He was referred for a sleep study sleep apnea. 3 . R ight anterior knee pain - M25.561 N otes :He has occasional pain in his knee which has improved substantially from his prior visit. I recommended he rest when it begins to hurt and not overuse the joint. 4 . D eviated nasal septum - J34.2 N otes :He will have a consultation with ENT after the sleep study. Plan: * Treatment: 2. L oud snoring L AB: PROFILE, FASTING (COMPREHENSIVE METABOLIC) L AB: CBC w DIFF L AB: Lipid Panel L AB: Testosterone, Total I maging: Sleep Study - Diagnostic Referral To:of [facility] Ot[facility] Reason:deviated septum evaluate and treatment excessive snoring 3. O thers Start Albuterol Sulfate HFA Aerosol Solution, 108 (90 Base) MCG/ACT, 1 puff as needed, Inhalation, every 6 hrs, 30 days, 1 Inhaler, Refills 11. ? Referral To: [facility] Otol[facility] Reason:deviated septum evaluate and treatment excessive snoring * Procedure Codes: * Preventive Medicine: Counseling: C are goal [...] Other reason not done * Follow Up: a fter testing (Reason: ov review labs/sleep study) * Images: * Sign off status: Completed true * Provider: Gurwinder Taylor MD Date: 0 11/04/2024 Generated for Aisha melissa/Hermilo/eTransmitting on: 1 04/09/2024 07:54 AM EST History and Physical Notes * HPI (History of Present Illness) Category Sub-Category Detail Notes Depression Screening PHQ-9 Little inte rest or pleasure in doing things: Not at all Feeling down, depressed, or hopeless: No t at all Trouble falling or staying asleep, or sl eeping too much: Several days Feeling tired or having little energy: S everal days Poor appetite or overeating: Several day s Feeling bad about yourself o r that you are a failure, or have let yourself or your family down: Not at all Trouble concentrating on thi ngs, such as reading the newspaper or watching television: More than half the days Moving or speaking so slowly that other people could have noticed; or the opposite, being so fidgety or restless that you have been moving around a lot more than usual: Several days Thoughts that you would be b elin off or of hurting yourself in some way: Not at all Total Score: 6 Interpretation: Mild Depression COVID-19 Screening Questions Have you had any new onset fever, chills, cough, congestion, sore throat, shortness of breath, muscle aches?: No SDOH Questions SDOH Questions In the past [...] developed, in no acute distress, calm and relaxed: obese: man HEAD: atraumatic, normocep halic EYES: eomi, perrla, anicte jacob, conjugate EARS: normal NOSE: Septum deviated to t he right with narrowing of the nasal NECK/THYROID: no jugular venous di stention, no carotid bruit, thyroid normal HEART: no clicks, gallops, murmurs, or rubs, regular rhythm, S1, S2 normal, no s3, or vascular bruits LUNGS: clear to auscultatio n ABDOMEN: bowel sounds normal, no ascites, no organomegaly, no mass: centripital obesity NEUROLOGIC: alert and oriented, cranial nerves 2-12 grossly intact, deep tendon reflexes 2+ symmetrical, motor strength normal upper and lower extremities, sensory exam intact SKIN: no suspicious lesion s, anicteric PERIPHERAL PULSES: normal BREASTS: no masses palpable b ilaterally MUSCULOSKELETAL: extremities unremark able, no clubbing, cyanosis or edema LYMPH NODES: no enlarged lymph no jyoti,spleen normal RECTAL EXAM: not examined PSYCH: alert, oriented ORAL CAVITY: normal, unremarkable Consultation Request Notes Referral Date Referring Provider Referred Provider Not es 11/04/2024 Alistair Taylor Surgeons, of [facility], [facility] deviated septum evaluate and treatment excessive snoring
--- OUTSIDE RECORDS SUMMARY | 2024-11-08 09:33 | XMS_ITS ---
Author Organization Alistair aTylor III, MD Address [address] [place] [address] [place] [address] Care Team Providers Care Supervisor Mold Yard Name Role Phone Dr. Alistair Taylor III Primary Care Provider [phone] REASON FOR VISIT new order for Home sleep study Social History Sex Assigned At : Social History Observation Description Sex Assigned At Male Encounters Encounter Location Date Provider Diagnosis Alistair Taylor III, MD [address] [place] [address] [place] [address] 11/08/2024 Alistair Taylor Obesity (BMI 30-39.9 ) E66.9 ; Excessive daytime sleepiness G47.19 and Loud snoring R06.83 Assessments Encounter Date Diagnosis (ICD Code) Assessment Notes Treatment Notes Treatment Clinical Notes 11/08/2024 Obesity (BMI 30-39.9) (ICD-10 - E66.9) 11/08/2024 Excessive daytime sleepiness (ICD-10 - G47.19) 11/08/2024 Loud snoring (ICD-10 - R06.83) Plan Of Treatment Pending Test Test Name Order Date Sleep Study - Baseline 11/08/2024 Next Appt Details Provider Name:Alistair Taylor , 11/06/2025 11:00:00 AM, [address] [place] [address] [place], [address], Progress Notes * Bryon HUNTERDOB:1995 (29 yo M)Acc No.[id number]:11/08/2024 Patient: S HABryon HENRANDEZ :1995 A ge:29 Y S ex:Male Address:[address], [place], [address] Subjective: * Chief Complaints: * n ew order for Home sleep study * Medical History: * Surgical History: * Hospitalization/Major Diagno stic Procedure: * Medications: Objective: * Vitals: * Physical Examination: Assessment: * Assessment: 1. O besity (BMI 30-39.9) - E66.9 2 . E xcessive daytime sleepiness - G47.19 3 . L oud snoring - R06.83 Plan: * Treatment: 2. E xcessive daytime sleepiness I maging: Sleep Study - Baseline 3. L oud snoring I maging: Sleep Study - Baseline * Procedure Codes: * true * Date: Generated for Aisha melissa/Hermilo/Cory on: 04/09/2024 07:54 AM EST
--- OUTSIDE RECORDS SUMMARY | 2025-02-07 07:54 | XMS_ITS | Encounter Summary ---
Author Organization [facility] Address [address] [place] [address] Phone Care Team Providers Care Resource Specialist Name Role Phone Sudhakar Agosto MD Primary Care Provider Unavailabl e Encounter Details Date Type Department Care Team (Late st Contact Info) Description 06/02/2014 Documentation [facility] [place] [address] [place] [address] Family Medicine, Physician [address] [place], [place] [address] Social History Tobacco Use Types Packs/Day Years [...] on filedocumented in this encounter Care Teams Resource Specialist Relationship Specialty Start Date End Date Sudhakar Agosto MD PCP - General 11/07/16 documented as of this encounter
--- OUTSIDE RECORDS SUMMARY | 2025-02-07 07:54 | XMS_ITS | Encounter Summary ---
Author Organization [facility] Address [address] [place] [address] Phone Care Team Providers Care Residential Program Manager Name Role Phone Sudhakar Agosto MD Primary Care Provider Unavailabl e Encounter Details Date Type Department Care Team (Late st Contact Info) Description 11/21/2010 Documentation [facility] [place] [address] [place] [address] Family Medicine, Physician [address] [place], [place] [address] Social History Tobacco Use Types Packs/Day Years [...] on filedocumented in this encounter Care Teams Residential Program Manager Relationship Specialty Start Date End Date Sudhakar Agosto MD PCP - General 11/07/16 documented as of this encounter
--- OUTSIDE RECORDS SUMMARY | 2025-02-07 07:54 | XMS_ITS | Encounter Summary ---
Author Organization [facility] Address [address] [place] [address] Phone Care Team Providers Care Workforce Development Vice President Name Role Phone Sudhakar Agosto MD Primary Care Provider Unavailabl e Encounter Details Date Type Department Care Team (Late st Contact Info) Description 10/02/2014 Documentation [facility] [place] Family Medicine [address] [place] [address] Family Medicine, Physician [address] [place], [place] [address] Social History Tobacco Use Types Packs/Day Years [...] on filedocumented in this encounter Care Teams Workforce Development Vice President Relationship Specialty Start Date End Date Sudhakar Agosto MD PCP - General 11/07/16 documented as of this encounter
--- OUTSIDE RECORDS SUMMARY | 2025-02-07 07:54 | XMS_ITS | Clinical Summary ---
Author Organization [facility] Address [address] [place] [address] Phone Care Team Providers Care Route Deliverer Name Role Phone Sudhakar Agosto MD Primary [...] 10/20/2018 10/20/2008, 12/03/2001, 04/28/2001, Additional history exists Influenza Vaccines (#1) 2024 05/11/19 15, 04/28/2013, 12/18/2011, Additional history exists COVID-19 Vaccine ( season) 2024 Hepatitis B Vaccines Completed 04/28/2001, 11/13/2000, 09/25/2000 [...] age to complete this topic Care Teams Route Deliverer Relationship Specialty Start Date End Date Sudhakar Agosto MD PCP - General 11/07/16
--- OUTSIDE RECORDS SUMMARY | 2025-02-07 07:54 | XMS_ITS | Patient Health Record ---
Author Organization Alistair Taylor III, MD Address [address] [place] [address] Care Team Providers Care Repairer Evaporator Name Role Phone Dr. Alistair Taylor III Primary Care Provider [phone] Allergies Allergen (clinical drug ingredient) Drug/Non Drug Allergy documented on EMR Reaction Allergy Type Onset Date Status No Known Drug Allergy Unknown Drug Allergy Active Fruits (uncoded) Unknown Allergy Act nader Results Component Value Reference Range Notes Complete Blood Count Auto Di ff Reviewed date:12/12/2024 01:05:02 PM Interpretation: Performing Lab:[facility], [address] [place] [phone] Notes/Report: White Blood Count 8.1 4.8-10.8 X10*3/uL Red Blood Count 5.50 4.60-5.80 X10*6/uL Hemoglobin 15.7 14.0-18.0 g/dl Hematocrit 47.5 42.0-52.0 % Mean Corpuscular Volume 86.4 80.0-98.0 fL Mean Corpuscular Hemoglobin 28.5 27.0-33.0 pg Mean Corpuscular HGB Conc 33.1 31.0-36.0 g/dl Red Cell Distribution Width 13.5 11.0-16.0 % Platelet Count 289 160-400 X10*3/uL Mean Platelet Volume 11.0 9.4-12.4 fL Neutrophils Percent Auto 66.5 45-73 % Imm Gran Pct Auto 0.2 0.0-0.4 % Lymphocytes Percent Auto 24.2 20-40 % Monocytes Percent Auto 7.3 2-11 % Eosinophils Percent Auto 1.4 0-4 % Basophils Percent Auto 0.4 0-2 % NRBC Pct Auto 0.0 0.0-0.2 /100WBC Neutrophils Absolute Auto 5.4 2.0-8.3 x10*3/u L Imm Gran Abs Auto 0.02 0.00-0.03 X10*3/uL Lymphocytes Absolute Auto 2.0 1.2-4.9 X10*3/u L Monocytes Absolute Auto 0.6 0.1-1.2 X10*3/uL Eosinophils Absolute Auto 0.1 0.0-0.4 X10*3/u L Basophils Absolute Auto 0.0 0.0-0.2 X10*3/uL NRBC Abs Auto 0.000 0.0-0.012 X10*3/uL Comprehensive [place]. Panel Fa st Reviewed date:12/12/2024 01:05:02 PM Interpretation: Performing Lab:[address] [phone] Notes/Report: Sodium 140 135-145 mmol/L Potassium 4.1 3.3-5.1 mmol/L Chloride 105 96-108 mmol/L Carbon Dioxide 25 22-29 mmol/L Anion Gap 14 12-20 Blood Urea Nitrogen 13 9-16 mg/dL Creatinine 1.15 0.5-1.4 mg/dL Estimated Glomerular Filt Rate > 60 Chronic Kidney Disease: Estimated GFR < 60 mL/min/1.73m2 Severe Kidney Disease: Estimated GFR < 15 mL/min/1.73m2 Glucose Fasting 86 60-99 mg/dL Calcium 9.5 8.4-10.2 mg/dL Bilirubin Total 1.0 0.0-1.0 mg/dL Aspartate Amino Transferase 30 5-37 U/L Alanine Aminotransferase 52 0-40 U/L Total Protein 7.9 6.5-8.0 g/dL Albumin Level 4.8 3.5-5.0 g/dL Alkaline Phosphatase 54 39-117 U/L Lipid Panel Reviewed date:12/12/2024 01:05:02 PM Interpretation: Performing Lab:[facility], [address] [place] [phone] Notes/Report: Triglycerides 102 <150 mg/dL Desirable Triglyceride: less than 150 mg/dL Borderline High Triglyceride 150-199 mg/dL High Triglyceride: 200-499 mg/dL Very High Triglyceride: greater than or equal to 5OO mg/dL Cholesterol 183 <200 mg/dL Desirable Cholesterol: less than 200 mg/dL Borderline High Cholesterol: 200-239 mg/dL High Cholesterol: greater than 239 mg/dL LDL Cholesterol Calculated 118 <100 mg/dL Desirable LDL: less than 100 mg/dL Near Optimal/Above Optimal LDL: 110-129 mg/dL Borderline High LDL: 130-159 mg/dL High LDL: 160-189 mg/dL Very High LDL: greater than or equal to 190 mg/dL HDL Cholesterol 45 >40 mg/dL Desirable HDL: greater than 40 mg/dL Note: This HDL assay may give artificially low results in patients with liver disease. Testosterone, Total Reviewed date:12/12/2024 01:05:02 PM Interpretation: Performing Lab:[facility], [address] [place] [phone] Notes/Report: Testosterone, Total 895 884-1645 ng/dL For additional information, please refer to http://education.[employer].com/faq/ [email or web address] 5 (This link is being provided for informational/ educational purposes only.) This test was developed and its analytical performance characteristics have been determined by [employer] [place], [place]. It has not been cleared or approved by the U.S. Food and Drug Administration. This assay has been validated pursuant to the CLIA regulations and is used for clinical purposes. THIS TEST WAS PERFORMED AT: [employer]/[address] GRACIELA CANTU MD,PHD Reason For Referral Reason deviated septum ev aluate and treatment excessive snoring Diagnosis 1 Obesity (BMI 30-39.9 ) (E66.9) Diagnosis 2 Loud snoring (R06.83 ) Diagnosis 3 Excessive daytime sl eepiness (G47.19) Referral Organization Alistair Taylor III, MD Referring Provider First Name Alistair Referring Provider Last Name Claudia Referring Provider Speciality Internal M edicine Referred Provider [facility], [facility], [facility] Referred Provider Specialty Otolaryngolo gy General Notes Shanique Jain CMA 11/10 09:48:17 AM >form/ref/progress note faxed to [facility] 11/17/2024 03:29:45 PM >called ENT made patient appt with Dr Jose Luis Funez 100 [facility] [address] [facility] info called and mailed to patient Referral [...] Problem Status W/U Status Risk Notes Problem 666054048 Deviated nasal septum (J34.2) Active confirmed He will have a consultation with ENT after the sleep study. Problem 895789127 Obesity (BMI 30-39.9) (E66.9) Active confirmed His body mass index is 37. We had a long discussion about health consequences of obesity. We discussed diet and nutrition. We made a plan to lose weight at a rate of 1 poundd per week. He was referred to a dietitian for a low cholesterol weight reduction diet. Problem 34837030 Fasciitis (M72.9) Active confirmed This has resolved and is no longer present. Problem 325321690 Right anterior knee pain (M25.561) Active confirmed He has occasional pain in his knee which has improved substantially from his prior visit. I recommended he rest when it begins to hurt and not overuse the joint. Problem 721203403483 Excessive daytime sleepiness (G47.19) Active confirmed Vital Signs Heart Rate 69 /min 11/04/2024 Temperature 98.1 degrees Fahrenheit 11/04/2024 Blood pressure diastolic 96 mm Hg 11/04/2024 Height 67 in 11/04/2024 Blood pressure systolic 133 mm Hg 11/04/2024 Weight 246 lbs 11/04/2024 BMI 38.52 kg/m2 11/04/2024 Encounters Encounter Location Date Provider Diagnosis Alistair Taylor III, MD [address] [place] [address] [address] [id number] 11/04/2024 Alistair Taylor Obesity (BMI 30-39.9 ) E66.9 ; Loud snoring R06.83 ; Right anterior knee pain M25.561 and Deviated nasal septum J34.2 Alistair Taylor III, MD [address] [place] [address] [address] [address] 11/08/2024 Alistair Claudia Obesity (BMI 30-39.9 ) E66.9 ; Excessive [...] Order Date PROFILE, FASTING (COMPREHENSIVE METABOLI C) 05/10/2019 PROFILE, FASTING (COMPREHENSIVE METABOLI C) 11/03/2023 PROFILE, FASTING (COMPREHENSIVE METABOLI C) 10/28/2022 PROFILE, FASTING (COMPREHENSIVE METABOLI C) 11/04/2024 LIPID PANEL 10/28/2022 LIPID PANEL 05/10/2019 CBC w DIFF 11/04/2024 CBC w DIFF 10/28/2022 CBC w DIFF 05/10/2019 Sleep Study - Baseline 11/08/2024 Sleep Study - Diagnostic 11/04/2024 CBC WITH AUTO DIFF 11/03/2023 Lipid Panel 11/04/2024 Lipid Panel 11/03/2023 Testosterone, Total 11/04/2024 Next Appt Details Provider Name:Alistair Taylro , 11/06/2025 11:00:00 AM, [address] [place] [address] , [address], [place], [address], Insurance Providers Payer Name Payer Address Payer Phone Subscriber Number Group Number Insured Name Patient Relationship to Insured Coverage Start Date Coverage End Date BAUDILIO COREAS [address] [place], [place] [id number] [phone] [id number] Bryon Hunter Self - patient is the insured Medical (General) History Medical History History ICD Code Overweight E66.3 Surgical History Surgery Date(Month/Year) Lasik bilateral 2022 dental extractions age 17
--- OUTSIDE RECORDS SUMMARY | 2025-02-07 07:54 | XMS_ITS | Clinical Summary ---
Author Organization [facility] Address [address] [place] [address] Care Team Providers Care Digital Publishing Specialist Name Role Phone Unavailable Primary Care Provider [...] of 3 - 19+ 3-dose series) 10/17/2015 HPV Vaccines (1 - 3-dose SCD M series) 10/17/2023 Depression Screening 03/30/2024 COVID-19 Vaccine (1 - 2024-2 6 season) 2024 Influenza Vaccine (#1) 2024 RSV Immunization Adult Patie nts (1 - 1-dose 75+ series) 10/17/2071 HIB Vaccines Aged Out No longer eligi [...]
--- OUTSIDE RECORDS SUMMARY | 2025-02-07 07:54 | XMS_ITS | Encounter Summary ---
Author Organization [facility] Address [address] [place] [address] Phone Care Team Providers Care Sports Director Name Role Phone Sudhakar Agosto MD Primary Care Provider Unavailabl e Encounter Details Date Type Department Care Team (Late st Contact Info) Description 12/29/2011 [place]ation [facility] [place] [facility] [address] [place] [address] Family Medicine, Physician [address], [place] [id number] Social History Tobacco Use Types Packs/Day Years [...] on filedocumented in this encounter Care Teams Sports Director Relationship Specialty Start Date End Date Sudhakar Agosto MD PCP - General 11/07/16 documented as of this encounter
--- OUTSIDE RECORDS SUMMARY | 2025-02-07 07:54 | XMS_ITS | Encounter Summary ---
Author Organization [facility] Address [address] [place] [address] Phone Care Team Providers Care Preschool Principal Name Role Phone Sudhakar Agosto MD Primary Care Provider Unavailabl e Encounter Details Date Type Department Care Team (Late st Contact Info) Description 11/13/2016 Conversion Encounter [facility] - [address] [address] Social History Tobacco Use Types Packs/Day Years [...] on filedocumented in this encounter Care Teams Preschool Principal Relationship Specialty Start Date End Date Sudhakar Agosto MD PCP - General 11/07/16 documented as of this encounter
== END ==
LOC: HO.SL 07:51
PROVIDERS: PCP Internal Medicine Medical Oncology; Visit Provider Internal Medicine Medical Oncology
DX: G47.19 Other hypersomnia (principal); R06.83 Snoring; E66.9 Obesity, unspecified
CPT/HCPCS: 95806

== ENCOUNTER → 2025-02-07 21:00 | Outpatient (BNV) | payer OTHER, SELFPAY | PROVIDERS: PCP Internal Medicine Medical Oncology; Visit Provider Psychiatry & Neurology Neurology | DX: G47.33 Obstructive sleep apnea (adult) (pediatric) (principal) | CPT/HCPCS: 95806 ==